=== PATIENT | female | born 1970 | race Caucasian/White ===

== ENCOUNTER 2017-07-27 11:44 | Emergency (ER) | payer SELFPAY ==
[~2017-07-27] VITALS: Ht 167.6 cm; Wt 69.5 kg
[~2017-07-27 11:44] MED LIST: DSY100 PO; GARC1TAB PO; IBUP-1050 PO; [UNRECOGNIZED DRUG - OTHER] PO
[2017-07-27 11:48] VITALS: TEMP 36.5; Ht 167.6 cm; Wt 69.5 kg
[2017-07-27 12:29] LABS: BASO % 0.2 %; BASO ABS # 0.02 K/uL (0-0.2); COMPLETE YES; HEMATOCRIT 39.7 % (37-47); IG% 0.1 %; LYMPH % 38.9 %; LYMPH ABS # 3.25 K/uL (1.2-3.4); MEAN CELL VOLUME 89.4 fL (80-100); MEAN CORPUSCULAR HEMOGLOBIN 30.6 pg (25-34); MEAN CORPUSCULAR HGB CONC 34.3 g/dl (32-36); MEAN PLATELET VOLUME 9.3 fL (7.4-10.4); MONO % 5.4 %; NEUT % 54.4 %; PLATELET COUNT 325 K/uL (130-400); RED BLOOD COUNT 4.44 M/uL (4.2-5.4); WHITE BLOOD COUNT 8.35 K/uL (4.8-10.8)
[2017-07-27 12:38] LABS: INR 0.9 (0.9-1.1); PROTHROMBIN TIME (PATIENT) 10.1 SECONDS (9.0-12.0)
[2017-07-27 12:46] LABS: MANUAL MICROSCOPIC REQUIRED? NO; REVIEW REQ? NO; URINE APPEARANCE CLEAR (CLEAR); URINE BILIRUBIN NEG (NEG); URINE COLOR YELLOW; URINE NITRITE NEG (NEG); URINE PH 5.5 (4.5-7.5); URINE SPECIFIC GRAVITY 1.025 (1.000-1.030); UROBILINOGEN NEG (NEG)
[2017-07-27 12:48] LABS: BUN/CREATININE RATIO 8.6 (10-20); CREATININE 1.1 mg/dl (0.60-1.20); MAGNESIUM 2.1 mg/dl (1.8-2.4); POTASSIUM 3.6 mmol/L (3.5-5.1)
[2017-07-27 12:56] LABS: C-REACTIVE PROTEIN 0.48 mg/dl (0-0.29); THYROID STIMULATING HORMONE 0.845 uIu/ml (0.300-4.500)
[2017-07-27] MEDS ORDERED: CYCL5TAB PO (13:29)
[2017-07-27] MEDS ORDERED: OXYC1TAB3 PO (13:29)
[2017-07-27 13:31] VITALS: BP 112/64; PULSE 74; O2SAT 98
--- NOTE | 2017-07-27 13:31 | EMERGENCY ROOM VISIT NOTE ---
History First contact with patient: 11:51 Chief Complaint: HEAD PAIN Stated Complaint: PAIN IN THE BACK OF HEAD History of Present Illness The patient is a 47 year old female who presents to the Emergency Room via private vehicle with complaints of "pain in the back of head". The patient states that when she woke up this morning there was no pain however around 7:30 AM she developed sharp stabs of pain in the occipital region on both sides that waxes and wanes. She states this is not a headache. She rates the pain at times as an 8/10 but notes currently is a 3/10. She has taken 800 mg ibuprofen without relief. She denies any fevers, chills, chest pain, shortness of breath , vision troubles, having this before, injury or trauma to the area. Review of Systems A complete 10-point Review of Systems was discussed with the patient, with pertinent positives and negatives listed in the History of Present Illness. All remaining Review of Systems questions can be considered negative unless otherwise specified. Past Medical/Surgical History No pertinent. Family History no pertinent. Social History Smoking Status: Current Every Day Smoker Alcohol Use: none Drug Use: none Marital Status: Occupation Status: employed Current/Historical Medications Scheduled Cyclobenzaprine Hcl (Flexeril), 5 MG PO TID Scheduled PRN Ibuprofen (Advil), 800 MG PO Q4 PRN for Pain Oxycodone Ir (Roxicodone Ir), 1-2 TAB PO Q4H PRN for Pain Trazodone HCl (Trazodone HCl), 100 MG PO HS PRN for Sleep Physical Exam Vital Signs Date Time Temp Pulse Resp B/P (MAP) Pulse Ox O2 Delivery O2 Flow Rate FiO2 07/27/17 13:31 74 18 112/64 98 Room Air 07/27/17 11:48 36.5 77 15 113/72 100 Room Air Physical Exam VITAL SIGNS - Vital signs and nursing notes were reviewed. Stable. Afebrile. GENERAL -47-year-old female appearing her stated age who is in no acute distress. Communicates well with provider and answers questions appropriately. SKIN - Without rashes. Skin overlying the occipital region is unremarkable. HEAD - NC/AT. No tenderness to the occipital region. EYES - PERRL with EOMI bilaterally. Sclera anicteric. No hyphema. EARS - No deformities of external structures noted on gross examination bilaterally. No pain elicited with palpation of the tragus bilaterally. External auditory canals without discharge or otorrhea. Tympanic membranes pearly fisher without retraction or bulging. No fluid or purulent material visualized behind the TM. Handle of malleus, umbo, cone of light, pars tensa/ flaccid all easily visualized. No hemotympanum. NOSE - Midline and without cyanosis. No epistaxis or purulent drainage noted. MOUTH/OROPHARYNX - Without perioral cyanosis. Buccal mucosa pink and moist and without leukoplakia. Tongue midline with equal elevation of palate bilaterally. No tonsillar hypertrophy, erythema, or exudates noted. Fair dentition noted. NECK - Neck with FROM. Supple to palpation. No C-spine tenderness or paraspinous musculature tenderness. No nuchal rigidity. LUNGS - Chest wall symmetric without accessory muscle use, intercostals retractions, or central cyanosis. Normal vesicular breath sounds CTA B/L. No wheezes, rales, or rhonchi appreciated. CARDIAC - RRR with S1/S2. No murmur, rubs, or gallops appreciated. EXTREMITIES -+5/5 strength noted in UE/LE bilaterally. NEUROLOGIC - Cranial nerves II through XII grossly intact. Sensory intact to light touch throughout. PSYCH - A&O, and cooperates fully with examiner. Pt is very pleasant and interacts well with examiner. Medical Decision & Procedures Laboratory Results 07/27/17 12:15 Red Blood Count 4.44, Mean Corpuscular Volume 89.4, Mean Corpuscular Hemoglobin 30.6, Mean Corpuscular Hemoglobin Concent 34.3, Mean Platelet Volume 9.3, Neutrophils (%) (Auto) 54.4, Lymphocytes (%) (Auto) 38.9, Monocytes (%) (Auto) 5.4, Eosinophils (%) (Auto) 1.0, Basophils (%) (Auto) 0.2, Neutrophils # (Auto) 4.54, Lymphocytes # (Auto) 3.25, Monocytes # (Auto) 0.45, Eosinophils # (Auto) 0.08, Basophils # (Auto) 0.02 07/27/17 12:15 Test 07/27/17 12:15 07/27/17 12:20 White Blood Count 8.35 K/uL (4.8-10.8) Red Blood Count 4.44 M/uL (4.2-5.4) Hemoglobin 13.6 g/dL (12.0-16.0) Hematocrit 39.7 % (37-47) Mean Corpuscular Volume 89.4 fL (80-100) Mean Corpuscular Hemoglobin 30.6 pg (25-34) Mean Corpuscular Hemoglobin Concent 34.3 g/dl (32-36) Platelet Count 325 K/uL (130-400) Mean Platelet Volume 9.3 fL (7.4-10.4) Neutrophils (%) (Auto) 54.4 % Lymphocytes (%) (Auto) 38.9 % Monocytes (%) (Auto) 5.4 % Eosinophils (%) (Auto) 1.0 % Basophils (%) (Auto) 0.2 % Neutrophils # (Auto) 4.54 K/uL (1.4-6.5) Lymphocytes # (Auto) 3.25 K/uL (1.2-3.4) Monocytes # (Auto) 0.45 K/uL (0.11-0.59) Eosinophils # (Auto) 0.08 K/uL (0-0.5) Basophils # (Auto) 0.02 K/uL (0-0.2) RDW Standard Deviation 47.4 fL (36.4-46.3) RDW Coefficient of Variation 14.4 % (11.5-14.5) Immature Granulocyte % (Auto) 0.1 % Immature Granulocyte # (Auto) 0.01 K/uL (0.00-0.02) Erythrocyte Sedimentation Rate 16 mm/hr (0-21) Prothrombin Time 10.1 SECONDS (9.0-12.0) Prothromb Time International Ratio 0.9 (0.9-1.1) Activated Partial Thromboplast Time 26.6 SECONDS (21.0-31.0) Partial Thromboplastin Ratio 1.0 Anion Gap 10.0 mmol/L (3-11) Est Creatinine Clear Calc Drug Dose 60.4 ml/min Estimated GFR () 70.2 Estimated GFR (Non- 60.6 BUN/Creatinine Ratio 8.6 (10-20) Calcium Level 9.0 mg/dl (8.5-10.1) Magnesium Level 2.1 mg/dl (1.8-2.4) Total Bilirubin 0.3 mg/dl (0.2-1) Aspartate Amino Transf (AST/SGOT) 8 U/L (15-37) Alanine Aminotransferase (ALT/SGPT) 17 U/L (12-78) Alkaline Phosphatase 65 U/L (45-117) C-Reactive Protein 0.48 mg/dl (0-0.29) Total Protein 7.7 gm/dl (6.4-8.2) Albumin 3.8 gm/dl (3.4-5.0) Globulin 3.9 gm/dl (2.5-4.0) Albumin/Globulin Ratio 1.0 (0.9-2) Thyroid Stimulating Hormone (TSH) 0.845 uIu/ml (0.300-4.500) Lyme Disease IgG Antibody NEG (NEG) Urine Color YELLOW Urine Appearance CLEAR (CLEAR) Urine pH 5.5 (4.5-7.5) Urine Specific [place] 1.025 (1.000-1.030) Urine Protein NEG (NEG) Urine Glucose (UA) NEG (NEG) Urine Ketones NEG (NEG) Urine Occult Blood NEG (NEG) Urine Nitrite NEG (NEG) Urine Bilirubin NEG (NEG) Urine Urobilinogen NEG (NEG) Urine Leukocyte Esterase NEG (NEG) Medical Decision Patient was seen and evaluated as above. After obtaining a thorough history and physical examination IV access was initiated, and the above workup was performed. Her exam is benign. There are no neurologic deficits. I suspect she is likely experiencing an occipital neuralgia. CBC reveals no concerning leukocytosis or anemia. ESR is normal. Coags normal. Patient's metabolic panel reveals glucose 101, AST low at 8, and CRP slightly elevated at 0.48. TSH is normal. Urine is negative. Patient Lyme testing is equivocal for IgM. This was tested because of the patient's presentation and symptoms today. I this time will not treat, but we'll await the began testing as I believe she is likely experiencing the occipital neuralgia. Patient was informed upon findings and diagnosis. She was educated upon management, is to follow with her family doctor, will be given a short course of muscle relaxants and pain medication and was discharged home in good condition. In the evaluation and treatment of this patient, the following differential diagnoses were considered: Migraine Headache, Intracranial Hemorrhage, Subdural Hematoma, Subarachnoid Hemorrhage, Cerebral Aneurysm, Temporal/Giant Cell Arteritis, Tension Headache, Meningitis, Encephalitis, or Hydrocephalus. [place] Drug Monitoring Program Search Results: patient reviewed within database, no issues identified Impression Primary Impression: Bilateral occipital neuralgia Departure Information Dispostion Home / Self-Care Condition GOOD Prescriptions Cyclobenzaprine Hcl (FLEXERIL) 5 Mg Tab 5 MG PO TID for 5 Days, #15 TAB PRN Prov: Balbir Awan PA-C 07/27/17 Oxycodone Ir (Roxicodone Ir) 5 Mg Tab 1-2 TAB PO Q4H Y for Pain, #20 TAB For Initial Treatment Prov: Balbir Awan PA-C 07/27/17 Referrals Giovanny Muniz M.D. (PCP) Patient Instructions My [facility] Additional Instructions You have been treated in the Emergency Department for pain in the occipital region that I suspect is occipital neuralgia. You have been prescribed oxycodone immediate release to be used for pain control. This is a narcotic medication. You cannot drive or consume alcohol while on this medicine. This medicine should only be used for pain that cannot be controlled with [id number] pain medicines. You have been prescribed Flexeril (cyclobenzaprine) 1 tabs orally, three times per day. Do NOT exceed 30 mg (6 tabs) per day. Take your first dose at bedtime as it can make you drowsy. Always take all medications as prescribed. For pain control, you can use the following [id number] medicine: - Regular strength (325mg/tab) Tylenol (acetaminophen) 2 tabs every 4-6 hours as needed. Do not exceed 12 tablets in a 24 hour period. Avoid taking more than 3 grams (3000 mg) of Tylenol per day. This includes any other sources of acetaminophen you may take on a regular basis. - Regular strength (200 mg/tab) Advil (ibuprofen) 1-2 tabs every 4-6 hours as needed. Do not exceed a dose of 3200 mg per day. I recommend warm compresses and massage. If this is an acute injury, ice can be applied to the area of pain for the first 3 days to help decrease pain and inflammation. After the first 3 days, a heating pad can be used over the area for continued soothing relief. You should schedule a follow-up appointment in 2-3 days with your Primary Care Provider for further evaluation and treatment of your head pain. Please return with any new/concerning symptoms.
[2017-07-27 13:50] LABS: LYME DISEASE AB IGG NEG (NEG)
[2017-07-27 13:53] LABS: LYME DISEASE AB IGM EQUIVOCAL (NEG)
[2017-07-27 14:06] LABS: ZZUR CULT IF INDIC CLEAN CATCH NO
== END 2017-07-27 13:39 | disposition home or self-care (01) ==
LOC: C.EDB 11:46 → C.EDC 13:39
DX: M54.81 Occipital neuralgia (principal); F17.200 Nicotine dependence, unspecified, uncomplicated

== ENCOUNTER 2017-11-02 10:01 | Emergency (ER) | payer SELFPAY ==
[~2017-11-02] VITALS: Ht 167.6 cm; Wt 69.1 kg
[~2017-11-02 10:01] MED LIST changes: -GARC1TAB PO; +OXYC1TAB3 PO; -[UNRECOGNIZED DRUG - OTHER] PO
[2017-11-02 10:04] VITALS: TEMP 36.6; Ht 167.6 cm; Wt 69.1 kg
[2017-11-02] MEDS ORDERED: SODIUM CHLORIDE 0.9% 1000ML 1,000 ML IV STA (10:20)
[2017-11-02 10:24] VITALS: O2SAT 100
--- NOTE | 2017-11-02 10:49 | EMERGENCY ROOM VISIT NOTE ---
History First contact with patient: 10:12 Chief Complaint: ILLNESS Stated Complaint: TIGHTNESS IN CHEST, SOB Nursing Triage Summary: Pt states had a sinus infection, two days swelling to left side of face. Substernal cp with breathing, sob. History of Present Illness The patient is a 47 year old female who presents to the Emergency Room via private vehicle accompanied by male with complaints of "tightness in chest, shortness of breath". The patient states that she has had an ongoing sinus infection for the past 1.5 months. She was treated in the past with amoxicillin but notes that she has completed this and the symptoms persist. She states that yesterday she had a fever, chills or cough. She notes that her 2 children at home are ill. She also works with the general public and notes that she could've acquired an illness such as influenza. Today, she states when she woke up she felt a pain sensation in the superior most portion of her chest just inferior to her throat. She notes that part of her thyroid was extracted recently but the right side is still present. She states that the pain in the chest is with exhaling. She denies any heart history, history of stroke or clots. She does smoke. There is no hemoptysis. There is associated cough. Review of Systems A complete 10-point Review of Systems was discussed with the patient, with pertinent positives and negatives listed in the History of Present Illness. All remaining Review of Systems questions can be considered negative unless otherwise specified. Past Medical/Surgical History Thyroidectomy, hysterectomy Family History No pertinent Social History Smoking Status: Current Every Day Smoker Alcohol Use: none Drug Use: none Marital Status: Occupation Status: employed Current/Historical Medications Scheduled Azithromycin (Zithromax), 250 MG PO DAILY Scheduled PRN Hydrocodone W/ Homatropine (Hycodan 5/1.5MG 5 Ml), 5 ML PO Q4H PRN for Cough Trazodone HCl (Trazodone HCl), 100 MG PO HS PRN for Sleep Physical Exam Vital Signs Date Time Temp Pulse Resp B/P (MAP) Pulse Ox O2 Delivery O2 Flow Rate FiO2 11/02/17 12:43 85 20 92/64 95 Room Air 11/02/17 12:01 85 16 96/61 11/02/17 11:31 80 20 89/66 11/02/17 11:04 97/59 11/02/17 11:01 97 23 2/27/18 10:31 85 21 11/02/17 10:28 84 11/02/17 10:24 100 Room Air 11/02/17 10:04 36.6 88 18 118/78 100 Room Air Physical Exam VITAL SIGNS - Vital signs and nursing notes were reviewed. Stable. Afebrile. Nontoxic tachycardic and saturating well on room air 100%. GENERAL -47-year-old female appearing her stated age who is in no acute distress. Communicates well with provider and answers questions appropriately. SKIN - Without rashes. No petechial rashes. HEAD - NC/AT. EYES - PERRL with EOMI bilaterally. Sclera anicteric. EARS - No deformities of external structures noted on gross examination bilaterally. NOSE - Midline and without cyanosis. No epistaxis or purulent drainage noted. MOUTH/OROPHARYNX - Without perioral cyanosis. NECK - Neck with FROM. Supple to palpation. no lymphadenopathy noted. No nuchal rigidity. LUNGS - Chest wall symmetric without accessory muscle use, intercostals retractions, or central cyanosis. Normal vesicular breath sounds CTA B/L. No wheezes, rales, or rhonchi appreciated. CARDIAC - RRR with S1/S2. No murmur, rubs, or gallops appreciated. ABDOMEN - Abdominal contour normal without pulsations or visible masses. BS normoactive all four quadrants. No tenderness, palpable masses, hepatosplenomegaly, or ascites noted. EXTREMITIES - No clubbing or peripheral cyanosis. NEUROLOGIC - Cranial nerves II through XII grossly intact. PSYCH - A&O, and cooperates fully with examiner. Pt is very pleasant and interacts well with examiner. Medical Decision & Procedures ER Provider Diagnostic Interpretation: CHEST ONE VIEW PORTABLE CLINICAL HISTORY: cough, congestion, chest pain COMPARISON STUDY: 09/25/2013 FINDINGS: The cardiac and mediastinal contours are normal. There is no evidence of focal pulmonary consolidation. There is no evidence of failure. No pleural effusions are visualized.[ IMPRESSION: No active disease in the chest. Electronically signed by: Juan Gonzalez M.D. 11/02/2017 10:54 AM Dictated Date/Time: 11/02/2017 10:54 AM Laboratory Results 11/02/17 11:00 Red Blood Count 5.12, Mean Corpuscular Volume 87.1, Mean Corpuscular Hemoglobin 31.1, Mean Corpuscular Hemoglobin Concent 35.7, Mean Platelet Volume 9.2, Neutrophils (%) (Auto) 59.1, Lymphocytes (%) (Auto) 32.7, Monocytes (%) (Auto) 6.9, Eosinophils (%) (Auto) 0.9, Basophils (%) (Auto) 0.3, Neutrophils # (Auto) 4.04, Lymphocytes # (Auto) 2.24, Monocytes # (Auto) 0.47, Eosinophils # (Auto) 0.06, Basophils # (Auto) 0.02 11/02/17 11:00 Test 11/02/17 10:35 11/02/17 11:00 Influenza Type A Antigen Neg for Influ A (NEG) Influenza Type B Antigen Neg for Influ B (NEG) White Blood Count 6.84 K/uL (4.8-10.8) Red Blood Count 5.12 M/uL (4.2-5.4) Hemoglobin 15.9 g/dL (12.0-16.0) Hematocrit 44.6 % (37-47) Mean Corpuscular Volume 87.1 fL (80-100) Mean Corpuscular Hemoglobin 31.1 pg (25-34) Mean Corpuscular Hemoglobin Concent 35.7 g/dl (32-36) Platelet Count 366 K/uL (130-400) Mean Platelet Volume 9.2 fL (7.4-10.4) Neutrophils (%) (Auto) 59.1 % Lymphocytes (%) (Auto) 32.7 % Monocytes (%) (Auto) 6.9 % Eosinophils (%) (Auto) 0.9 % Basophils (%) (Auto) 0.3 % Neutrophils # (Auto) 4.04 K/uL (1.4-6.5) Lymphocytes # (Auto) 2.24 K/uL (1.2-3.4) Monocytes # (Auto) 0.47 K/uL (0.11-0.59) Eosinophils # (Auto) 0.06 K/uL (0-0.5) Basophils # (Auto) 0.02 K/uL (0-0.2) RDW Standard Deviation 46.0 fL (36.4-46.3) RDW Coefficient of Variation 14.3 % (11.5-14.5) Immature Granulocyte % (Auto) 0.1 % Immature Granulocyte # (Auto) 0.01 K/uL (0.00-0.02) Prothrombin Time 10.0 SECONDS (9.0-12.0) Prothromb Time International Ratio 1.0 (0.9-1.1) Activated Partial Thromboplast Time 26.9 SECONDS (21.0-31.0) Partial Thromboplastin Ratio 1.0 Anion Gap 7.0 mmol/L (3-11) Est Creatinine Clear Calc Drug Dose 54.0 ml/min Estimated GFR () 61.3 Estimated GFR (Non- 52.9 BUN/Creatinine Ratio 6.4 (10-20) Calcium Level 9.8 mg/dl (8.5-10.1) Magnesium Level 2.4 mg/dl (1.8-2.4) Total Bilirubin 0.6 mg/dl (0.2-1) Aspartate Amino Transf (AST/SGOT) 10 U/L (15-37) Alanine Aminotransferase (ALT/SGPT) 18 U/L (12-78) Alkaline Phosphatase 97 U/L (45-117) Troponin I < 0.015 ng/ml (0-0.045) Total Protein 9.4 gm/dl (6.4-8.2) Albumin 4.1 gm/dl (3.4-5.0) Globulin 5.3 gm/dl (2.5-4.0) Albumin/Globulin Ratio 0.8 (0.9-2) Thyroid Stimulating Hormone (TSH) 0.902 uIu/ml (0.300-4.500) Medications Administered Medications (Trade) Dose Ordered Sig/Amanda Route Start Time Stop Time Status Last Admin Dose Admin Sodium Chloride 1,000 ml @ 999 mls/hr Q1H1M STAT IV 11/02/17 10:20 11/02/17 11:20 DC 11/02/17 11:06 999 MLS/HR Azithromycin (Zithromax Tab) 500 mg NOW STAT PO 11/02/17 12:19 11/02/17 12:20 DC 11/02/17 12:27 500 MG Albuterol (Ventolin Hfa Inhaler) 2 puffs ONE STAT INH 11/02/17 12:19 11/02/17 12:20 DC 11/02/17 12:27 2 PUFFS Medical Decision Patient was seen and evaluated as above. She presents to us today with tightness in her chest and shortness of breath. She also has symptoms concerning for that of an infection to include sinus congestion, minimal production of her cough as well as general sensation of muscle aches/50. Bedside EKG was performed and reveals normal sinus rhythm per my interpretation , rate of 81 bpm. There is no ectopy or ischemic change. Chest x-ray negative. She was given fluids here. CBC reveals no leukocytosis or anemia. Coags normal. Metabolic panel reveals no evidence of liver failure. Her creatinine is 1.23. I informed her upon this finding and she is to call her family doctor to schedule follow-up. Protein high at 9.4. I suspect she likely is experiencing bronchitis/influenza-like illness. She notes that this feels identical to previous illnesses such as bronchitis. Flu negative. Because of the duration of her symptoms I will add azithromycin, she was given 500 mg here with the remainder sent to pharmacy. She will also be given an albuterol inhaler. I discussed with her whether or not to pursue workup for PE, and patient was to be treated for bronchitis, and will return with worsening. I discussed with her how her vital signs at this time appears stable, although the PE risk is low service should be considered that was why we discussed this specifically. She declined d-dimer/PE study. She is to call her family doctor to schedule follow-up, or return if worsening. The patient was educated upon management, had questions answered prior to discharge, and was discharged home in good condition. Case was discussed with the attending physician In the evaluation and treatment of this patient the following differential diagnoses were entertained: [place], PE, influenza, acute bronchitis, among others. Impression Primary Impression: Acute bronchitis Departure Information Dispostion Home / Self-Care Condition GOOD Prescriptions Hydrocodone W/ Homatropine (HYCODAN 5/1.5MG 5 ML) 1 Syp Syp 5 ML PO Q4H Y for Cough, #90 ML Prov: Balbir Awan PA-C 11/02/17 Azithromycin (ZITHROMAX) 250 Mg Tab 250 MG PO DAILY, #4 TAB Prov: Balbir Awan PA-C 11/02/17 Referrals Giovanny Muniz M.D. (PCP) Patient Instructions My [facility] Additional Instructions You were seen in the emergency Department for tightness in her chest, shortness of breath and cough. At this time I believe you're experiencing bronchitis. I recommended azithromycin. You given the first tablet here with the next dose tomorrow around noon time. I also recommend Hycodan cough syrup, 5 mL as every 4-6 hours as needed for your cough. Do not drive with this. Max of 30 mL's per day. Albuterol inhaler 1-2 puffs every 6 hours as needed for your cough. Please call your family doctor to schedule follow-up. Please rest and drink plenty of fluids. Please return with any new/concerning symptoms.
--- NOTE | 2017-11-02 10:55 | DIAGNOSTIC IMAGING REPORT ---
CHEST ONE VIEW PORTABLE CLINICAL HISTORY: cough, congestion, chest pain COMPARISON STUDY: 09/25/2013 FINDINGS: The cardiac and mediastinal contours are normal. There is no evidence of focal pulmonary consolidation. There is no evidence of failure. No pleural effusions are visualized.[ IMPRESSION: No active disease in the chest. Electronically signed by: Juan Gonzalez M.D. 11/02/2017 10:54 AM Dictated Date/Time: 11/02/2017 10:54 AM
[2017-11-02 11:21] LABS: BASO % 0.3 %; BASO ABS # 0.02 K/uL (0-0.2); EOS % 0.9 %; EOS ABS # 0.06 K/uL (0-0.5); HEMATOCRIT 44.6 % (37-47); HEMOGLOBIN 15.9 g/dL (12.0-16.0); IG# 0.01 K/uL (0.00-0.02); LYMPH % 32.7 %; LYMPH ABS # 2.24 K/uL (1.2-3.4); MEAN CELL VOLUME 87.1 fL (80-100); MEAN CORPUSCULAR HEMOGLOBIN 31.1 pg (25-34); MEAN CORPUSCULAR HGB CONC 35.7 g/dl (32-36); MEAN PLATELET VOLUME 9.2 fL (7.4-10.4); MONO % 6.9 %; MONO ABS # 0.47 K/uL (0.11-0.59); NEUT % 59.1 %; NEUT ABS # 4.04 K/uL (1.4-6.5); PLATELET COUNT 366 K/uL (130-400); RED CELL DISTRIBUTION WIDTH CV 14.3 % (11.5-14.5); WHITE BLOOD COUNT 6.84 K/uL (4.8-10.8)
[2017-11-02 11:30] LABS: PTT PATIENT 26.9 SECONDS (21.0-31.0)
[2017-11-02 11:38] LABS: INFLUENZA B ANTIGEN Neg for Influ B (NEG)
[2017-11-02 11:40] LABS: ALBUMIN 4.1 gm/dl (3.4-5.0); ALT/SGPT 18 U/L (12-78); BLOOD UREA NITROGEN 8 mg/dl (7-18); CALCIUM 9.8 mg/dl (8.5-10.1); CARBON DIOXIDE 24 mmol/L (21-32); CREATININE 1.23 mg/dl (0.60-1.20); GLUCOSE 81 mg/dl (70-99); POTASSIUM 3.7 mmol/L (3.5-5.1); SODIUM 137 mmol/L (136-145)
[2017-11-02 11:51] LABS: ALKALINE PHOSPHATASE 97 U/L (45-117); AST/SGOT 10 U/L (15-37); TOTAL PROTEIN 9.4 gm/dl (6.4-8.2)
[2017-11-02] MEDS ORDERED: AZITHROMYCIN 250 MG TAB PO STA (12:19)
[2017-11-02] MEDS ORDERED: ALBUTEROL HFA 8 GM INHALER INH STA (12:19)
[2017-11-02] MEDS ORDERED: AZIT-60 PO (12:21)
[2017-11-02] MEDS ORDERED: HYDR5SYP11 PO (12:21)
[2017-11-02 12:43] VITALS: BP 92/64; PULSE 85; O2SAT 95
== END 2017-11-02 12:44 | disposition home or self-care (01) ==
LOC: C.EDB 10:02 → C.EDC 12:44
DX: J20.9 Acute bronchitis, unspecified (principal); F17.210 Nicotine dependence, cigarettes, uncomplicated